=== PATIENT | male | born 1945 | race Caucasian/White ===

== ENCOUNTER 2025-01-20 19:48 | Inpatient (IN) | payer MEDICARE ==
[2025-01-20] MEDS: SODIUM CHLORIDE 0.9% 1,000 ML IV ONE (20:22)
[2025-01-20] MEDS: MIDAZOLAM 2 MG/2 ML VIAL IVP ONE ×2 (20:46→21:32)
[2025-01-20] MEDS: fentaNYL (PF) 50 MCG/1 ML VIAL IVP ONE (20:46)
[2025-01-20] MEDS: LIDOCAINE 1% INJ 10MG/ML (20 ML MDV) SQ ONE (20:46)
[2025-01-20] MEDS: VERAPAMIL SYRINGE (5 MG/10 ML) INTRAARTER ONE (20:50)
[2025-01-20] MEDS: TICAGRELOR 90 MG TAB PO ONE (21:02)
[2025-01-20] MEDS: HEPARIN SODIUM 1,000 UN/ML (10ML VL) IVP ONE ×2 (21:04→21:17)
[2025-01-20] MEDS: HEPARIN SODIUM,PORCINE 10,000 UNIT in SODIUM CHLORIDE 0.9% 1,000 ML IRRIGATION ONE (21:11)
[2025-01-20] MEDS: HEPARIN SODIUM,PORCINE (1 ML) 2,500 UNIT in SODIUM CHLORIDE 0.9% 250 ML IRRIGATION ONE (21:11)
[2025-01-20] MEDS: IOPAMIDOL-370 100ML BTL INJ ONE (22:00)
[2025-01-20] MEDS ORDERED: ATROPINE SULFATE 0.1 MG/ML 10ML SYRINGE IV PRN (22:03)
[2025-01-20] MEDS ORDERED: NITROGLYCERIN SL TABS 0.4 MG TAB SUBLINGUAL PRN (22:03)
[2025-01-20] MEDS ORDERED: ZOLPIDEM 5 MG TAB PO PRN (22:03)
[2025-01-20] MEDS ORDERED: MAG HYDROX/AL HYDROX/SIMETH 30 ML CUP PO PRN (22:03)
[2025-01-20] MEDS ORDERED: RX INFO: IV CONTRAST WAS GIVEN 1 EACH MISC MISCELLANE PRN (22:03)
[2025-01-20 22:07] LABS: Glucose,Whole Blood 102 mg/dL (70-110)
--- NOTE | 2025-01-20 22:12 | P.CARDCATH ---
Date of Procedure: 01/20/25 Description of Procedure: PERCUTANEOUS TRANSLUMINAL CORONARY ANGIOPLASTY CLINICAL INFORMATION: The patient is a 79-year-old male who presented to [facility] symptoms of chest discomfort, elevated troponin but no significant EKG changes. He underwent coronary angiography by Dr. Senior and was found to have calcified coronary arteries with severe disease in the mid RCA there appears to be an unstable plaque as well as disease in the proximal and mid LAD. Recommendations were made regarding angioplasty and stenting. The procedure as well as the risks and the complications were discussed with the patient who was in full understanding and agreement. PROCEDURE: A 6 Tongan AL 0.75 guiding catheter was introduced into the system. After cannulating the right coronary ostium, a 0.014 BMW J-wire was advanced across the lesion and positioned distally. A Blood cell Storage eye IVUS catheter was introduced and revealed a moderately calcified lesion with a distal lumen measuring 3.5 mm in diameter. Following that a 2.5 x 12 mm NC trek balloon was advanced and inflated at 10 atmosphere. Attempt to advance a 3.25 by 38 mm Xience joseph point stent were unsuccessful. A 3.0 x 12 mm NC trek balloon was advanced and inflations at 8 gabbi were done. Subsequently a 6 Tongan guide liner was positioned and with the help of the guide liner the stent was advanced. It was dilated at 16 gabbi. Repeat IVUS imaging was performed and subsequently 3.5 x 15 mm NC trek balloon was advanced and multiple inflation at 10 gabbi was done. After the last inflation, after appropriate wait, the balloon and the guidewire were withdrawn back into the guiding catheter. Images were obtained and repeated. Those images reveal stable successful stenting. At that point, the guiding catheter, the balloon, and guidewire were removed. The sheath was removed. Hemostasis was obtained with deployment of a TR band. There were no i mmediate complications. The patient was returned to the room in stable condition. Of note, the patient received 4000 units of heparin as well as Brilinta. His ACT was followed. There was no immediate complications. He had chest discomfort that improved at the end of the procedure. There was no significant EKG changes. RESULTS: Successful stenting of the mid RCA with reduction of stenosis from 90% to less than 5% with IVUS imaging and NIKA-3 flow. RECOMMENDATIONS: The patient will continue on aspirin and Brilinta for 1 year without any interruption in addition to aggressive coronary risks modifications. He will be evaluated regarding the timing to proceed with angioplasty and stenting of the LAD. The findings and recommendations were discussed with the patient and the family, they are in full understanding and agreement. Duration of sedation: 43 minutes
[2025-01-20] MEDS: SODIUM CHLORIDE 0.9% 1,000 ML in EMPTY BAG 1 BAG IV SCH (22:15)
[2025-01-21] MEDS: traZODone HCL 50 MG TAB PO SCH (00:27)
[2025-01-21 06:08] LABS: African American GFR (CKD) 82 (>60 ml/min/1.73 sqM); Anion Gap 7 mmol/L; Blood Urea Nitrogen 18 mg/dL (9-20); Calcium 8.1 mg/dL (8.4-10.2); Carbon Dioxide 20 mmol/L (22-30); Chloride 113 mmol/L (98-107); Glucose 81 mg/dL (74-99); Non-African American GFR(CKD) 71 (>60 ml/min/1.73 sqM); Potassium 3.4 mmol/L (3.5-5.1); Sodium 140 mmol/L (137-145)
[2025-01-21] MEDS ORDERED: ALPRAZolam 0.25 MG TAB PO PRN (07:36)
[2025-01-21] MEDS ORDERED: NITROGLYCERIN SL TABS 0.4 MG TAB SUBLINGUAL PRN (07:36)
[2025-01-21] MEDS ORDERED: ALPRAZolam 0.5 MG TAB PO PRN (07:36)
[2025-01-21] MEDS: TICAGRELOR 90 MG TAB PO SCH (08:11)
[2025-01-21] MEDS: METOPROLOL TARTRATE 25 MG TAB PO SCH (08:11)
[2025-01-21] MEDS: lisinopriL 10 MG TAB PO SCH (08:11)
[2025-01-21] MEDS: ASPIRIN 81 MG PO SCH (08:11)
[2025-01-21 08:49] LABS: Chol/HDL Ratio 3.93 Ratio; LDL Cholesterol,Calculated 91.6 mg/dL (0.0-131.0); VLDL Calculation 17.96 mg/dL (5.00-40.00)
[2025-01-21] MEDS ORDERED: Potassium Replacement Protocol 1 EACH MISC MISCELLANE PRN (09:19)
[2025-01-21] MEDS: POTASSIUM CHLORIDE ER 20 MEQ TAB.ER PO SCH (10:23)
--- NOTE | 2025-01-21 10:25 | CONS ---
CONSULTATION CHIEF COMPLAINT: Chest pain. HISTORY OF PRESENT ILLNESS: The patient 79-year-old gentleman with history of nonsustained VT, hypertension and dyslipidemia, who presented to [facility] with chest pain. The chest discomfort was like pressure, pericardial, radiated to both his arms, started around 9 o'clock this morning. I was called sometime up to 5 o'clock, informing me that his high sensitivity troponin came back elevated at 1255, however, the patient was pain- free and stable hemodynamically. I was told that the EKG did not reveal any ST-segment elevation. I received another phone call around 7 o'clock when the second set of troponin came back and it was around 4500. Due to this, I advised them to transfer the patient over to [facility] for an emergent catheterization. I am seeing the patient for the first time in the laboratory analyst. I do not have an EKG from the hospital. He states that he is pain-free, seems comfortable at rest and not in distress. I advised him to undergo cardiac catheterization for further evaluation. PAST MEDICAL HISTORY: Significant for hypertension and dyslipidemia. CURRENT MEDICATIONS: Include; 1. Lisinopril 30 daily. 2. Lopressor. 3. Rosuvastatin. 4. Flomax. ALLERGIES: As charted. FAMILY HISTORY: Negative for premature coronary artery disease. SOCIAL HISTORY: Negative for smoking, EtOH abuse, or drug abuse. REVIEW OF SYSTEMS: review of systems has been performed, pertinent are as documented. PHYSICAL EXAMINATION: GENERAL: Comfortable at rest. VITAL SIGNS: Stable. NECK: There is no jugular venous distention. Carotid upstroke is normal. There is no bruit. CHEST: Reveals good air entry bilaterally. HEART: Reveals first and second heart sounds. Systolic murmur at the apex. ABDOMEN: Soft. EXTREMITIES: Examination of the extremities did not reveal any edema. Peripheral pulses are felt. LABORATORY DATA: Show that the troponin is elevated. Hemoglobin is 13.1, platelet count is 198. AST and ALT are within normal limits. Creatinine is 1.38 with a BUN of 27. ASSESSMENT: 1. Acute coronary syndrome. 2. Renal insufficiency. 3. History of hypertension. 4. History of dyslipidemia. PLAN: The patient will undergo cardiac catheterization and will decide on further course of action based on the angiographic data. MMODL / IJN: [id number] /
[2025-01-21 12:54] VITALS: BMI 24.8
--- NOTE | 2025-01-21 14:32 | P.PN ---
Subjective Progress Note Date: 01/21/25 The patient is a 79-year-old male with no cardiac history, who presented to [facility] with new onset of chest discomfort. Coronary angiogram revealed multivessel coronary artery disease and he underwent stenting of the RCA by Dr. Mendoza. Patient also had intermediate to severe disease in the LAD, however with the patient's history of renal disease this was to be completed in a staged approach. Patient states he did relatively well overnight. He states he did not get much sleep. No chest pain or pressure. No difficulty breathing. GENERAL: Well-appearing, well-nourished and in no acute distress. NECK: Supple without JVD or thyromegaly. LUNGS: Breath sounds clear to auscultation bilaterally. Respiration equal and unlabored. No wheezes, rales or rhonchi. HEART: Regular rate and rhythm without murmurs, rubs or gallops. S1 and S2 heard. EXTREMITIES: Normal range of motion, no edema. No clubbing or cyanosis. Peripheral pulses intact and strong. Right radial site has no hematoma. TELEMETRY: Sinus rhythm overnight LABS: Sodium 140, potassium 3.4, BUN 18, creatinine 1.0, triglycerides 89, LDL 91 and HDL 37 IMPRESSION: Acute coronary syndrome Multivessel coronary artery disease Status post stenting of the RCA Renal insufficiency History of hypertension History of hyperlipidemia PLAN: Continue current antiplatelet therapy, beta-randa, and statin Plan for repeat coronary angiogram tomorrow to address the LAD N.p.o. after midnight Further recommendations based on clinical course I am dictating on behalf of Dr Jhon Sharpe's history/physical and assessment/plan. Objective - Vital Signs Vital signs: Vital Signs Temp 97.8 F 01/21/25 12:00 Pulse 70 01/21/25 12:00 Resp 18 01/21/25 12:00 BP 140/87 01/21/25 12:00 Pulse Ox 97 01/21/25 12:00 FiO2 Intake & Output 01/20/25 01/21/25 01/21/25 18:59 06:59 18:59 Intake Total 826 392 Output Total 0 Balance 826 392 Weight 74.2 kg 74.2 kg Intake: IV 826 152 Sodium Chloride 0.9% 1, 576 152 000 ml In Empty Bag 1 bag @ 1 ML/KG/HR 72.575 mls/ hr IV .[id number] [facility] Rx#: [id number] Oral 240 Output: Urine 0 Other: Voiding Method Toilet Toilet # Voids 1 1 # Bowel Movements 1 1 - Labs CBC & Chem 7: 01/21/25 05:02 Labs: Abnormal Lab Results - Last 24 Hours (Table) 01/21/25 01/21/25 Range/Units 05:02 05:02 Potassium 3.4 L (3.5-5.1) mmol/L Chloride 113 H (98-107) mmol/L Carbon Dioxide 20 L (22-30) mmol/L Calcium 8.1 L (8.4-10.2) mg/dL HDL Cholesterol 37.40 L (40.00-60.00) mg/dL
[2025-01-21] MEDS: ATORVASTATIN 80 MG TAB PO SCH (21:43)
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
[2025-01-22] MEDS ORDERED: ATORVASTATIN 80 MG TAB PO ONE (06:00)
[2025-01-22] MEDS ORDERED: ASPIRIN 325 MG TAB PO ONE (06:00)
[2025-01-22 06:01] LABS: Basophils # (A) 0.04 10*3/uL (0.00-0.10); Basophils % (A) 0.7 %; Eosinophils # (A) 0.18 10*3/uL (0.04-0.35); HCT 35.1 % (39.6-50.0); HGB 11.6 g/dL (13.0-17.0); Lymphocytes # (A) 0.72 10*3/uL (0.90-5.00); Lymphocytes % (A) 12.2 %; MCH 31.3 pg (27.0-32.0); MCV 94.6 fL (80.0-97.0); Mean Platelet Volume 11.5 fL (9.5-12.2); Monocytes # (A) 0.53 10*3/uL (0.20-1.00); Neutrophils # (A) 4.43 10*3/uL (1.80-7.70); Neutrophils % (A) 74.9 %; Platelet Count 183 10*3/uL (140-440); RBC 3.71 10*6/uL (4.40-5.60); RDW 13.8 % (11.5-14.5); WBC 5.91 10*3/uL (4.50-10.00)
[2025-01-22 06:19] LABS: African American GFR (CKD) 87 (>60 ml/min/1.73 sqM); Anion Gap 4 mmol/L; Blood Urea Nitrogen 13 mg/dL (9-20); Calcium 8.9 mg/dL (8.4-10.2); Carbon Dioxide 22 mmol/L (22-30); Chloride 112 mmol/L (98-107); Glucose 88 mg/dL (74-99); Non-African American GFR(CKD) 75 (>60 ml/min/1.73 sqM); Sodium 138 mmol/L (137-145)
[2025-01-22 06:25] LABS: Magnesium 1.7 mg/dL (1.6-2.3); Potassium 3.8 mmol/L (3.5-5.1)
[2025-01-22] MEDS: ASPIRIN 81 MG PO SCH (08:06)
--- NOTE | 2025-01-22 10:33 | CA ---
Transthoracic Echo Report Name: Marco A Pope Age: 79 Gender: M : 1945 Exam Date: 01/21/2025 12:29 Exam Location: [place] [facility] Ht (in): 68 Wt (lb): 160 Ordering Physician: Afsaneh Mendoza MD ([id number]) Attending/Referring Phys: Buckle Wire Inserter Cari Ramirez RDCS Procedure CPT: Indications: TN Cardiac Hx: Technical Quality: Fair Contrast 1: Total Dose (mL): Contrast 2: Total Dose (mL): MEASUREMENTS (Male / Female) Normal Values 2D ECHO LV Diastolic Diameter PLAX 4.0 cm 4.2 - 5.9 / 3.9 - 5.3 cm LV Systolic Diameter PLAX 2.7 cm IVS Diastolic Thickness 1.0 cm 0.6 - 1.0 / 0.6 - 0.9 cm LVPW Diastolic Thickness 1.1 cm 0.6 - 1.0 / 0.6 - 0.9 cm LV Relative Wall Thickness 0.5 RV Internal Dim ED PLAX 2.3 cm LVOT Diameter 2.1 cm LA Systolic Diameter LX 3.5 cm 3.0 - 4.0 / 2.7 - 3.8 cm LV Diastolic Volume MOD BP 58.0 cm??? 67 - 155 / 56 - 104 cm??? LV Systolic Volume MOD BP 25.7 cm??? / 19 - 49 cm??? LV Ejection Fraction MOD BP 55.7 % >= 55 % LV Cardiac Index MOD BP 1242.0 cm???/min???m??? LV Diastolic Volume MOD 4C 53.0 cm??? LV Systolic Volume MOD 4C 28.7 cm??? LV Ejection Fraction MOD 4C 45.8 % LV Cardiac Index MOD 4C 931.4 cm???/min???m??? LV Diastolic Length 4C 7.7 cm LV Systolic Length 4C 6.8 cm LV Diastolic Volume MOD 2C 61.2 cm??? LV Systolic Volume MOD 2C 23.0 cm??? LV Ejection Fraction MOD 2C 62.5 % LV Cardiac Index MOD 2C 1470.0 cm???/min???m??? LV Diastolic Length 2C 7.4 cm LV Systolic Length 2C 6.6 cm LA Volume 49.8 cm??? / 22 - 52 cm??? LA Volume Index 26.6 cm???/m??? 16 - 28 cm???/m??? M-MODE Aortic Root Diameter MM 2.9 cm LA Systolic Diameter MM 2.8 cm LA Ao Ratio MM 1.0 AV Cusp Separation MM 1.5 cm DOPPLER MV Area PHT 3.7 cm??? Mitral E Point Velocity 71.1 cm/s Mitral A Point Velocity 100.0 cm/s Mitral E to A Ratio 0.7 MV Deceleration Time 207.8 ms TR Peak Velocity 260.4 cm/s TR Peak Gradient 27.1 mmHg Right Atrial Pressure 20.0 mmHg Pulmonary Artery Systolic Pressu 47.1 mmHg Right Ventricular Systolic Press 47.1 mmHg FINDINGS Left Ventricle Left ventricular ejection fraction is estimated at 55-60 %. Normal left ventricular systolic function with no obvious regional wall motion abnormalities. Left ventricular cavity size normal. Left ventricular wall thickness normal. Right Ventricle Normal right ventricular size and function. Mild- moderate pulmonary hypertension. Right Atrium Mild right atrial dilatation. Left Atrium Mild left atrial dilatation. Mitral Valve Mitral valve thickened. Mitral annular calcification. Moderate mitral regurgitation. No mitral stenosis. Aortic Valve Trileaflet aortic valve. No aortic stenosis. No aortic regurgitation. Diffuse thickening (sclerosis) of the aortic valve cusps without reduced excursion. Tricuspid Valve Structurally normal tricuspid valve. Moderate tricuspid regurgitation. No tricuspid stenosis. Pulmonic Valve Structurally normal pulmonic valve. Trace pulmonic regurgitation. No pulmonic stenosis. Pericardium Minimal pericardial effusion (normal variant). No pericardial effusion. Aorta Normal size aortic root and proximal ascending aorta. CONCLUSIONS Take normal LV size and systolic function with mild concentric LVH. Mitral annular calcification with moderate mitral regurgitation, moderate tricuspid regurgitation with mild to moderate pulmonary hypertension. Small pericardial effusion Previewed by: Dr. Rajiv Foreman MD (Electronically Signed) Final Date: 22 January 2025 10:32
--- NOTE | 2025-01-22 11:19 | P.PN ---
Subjective HISTORY OF PRESENT ILLNESS: 01/21/2025 The patient is a 79-year-old male with no cardiac history, who presented to [facility] with new onset of chest discomfort. Coronary angiogram revealed multivessel coronary artery disease and he underwent stenting of the RCA by Dr. Mendoza. Patient also had intermediate to severe disease in the LAD, however with the patient's history of renal disease this was to be completed in a staged approach. Patient states he did relatively well overnight. He states he did not get much sleep. No chest pain or pressure. No difficulty breathing. 01/22/2025 Patient examined this morning at the bedside. Patient currently denies any chest pain or pressure. Denies any shortness of breath. Vital signs are stable. Telemetry reveals sinus mechanism. PHYSICAL EXAM: VITAL SIGNS: Reviewed. GENERAL: Well-developed in no acute distress. NECK: Supple. No JVD or thyromegaly LUNGS: Respirations even and unlabored. Lungs essentially clear to auscultation bilaterally. HEART: Regular rate and rhythm. S1 and S2 heard. EXTREMITIES: Normal range of motion. No clubbing or cyanosis. Peripheral pulses intact. No lower extremity edema ASSESSMENT: Acute coronary syndrome status post stenting of the RCA Multivessel coronary artery disease History of hypertension History of hyperlipidemia PLAN: Continue aspirin, Lipitor, lisinopril, metoprolol, and Brilinta Patient to undergo repeat cardiac catheterization tomorrow, 01/23/2025, with Dr. Mendoza to address LAD lesion Further recommendations pending patient course Nurse practitioner note has been reviewed by physician. Signing provider agrees with the documented findings, assessment, and plan of care documented by COAT BASTER as a scribe. Objective - Vital Signs Vital signs: Vital Signs Temp 98.1 F 01/22/25 08:00 Pulse 82 01/22/25 08:00 Resp 14 01/22/25 08:00 BP 145/82 01/22/25 08:00 Pulse Ox 97 01/22/25 08:00 FiO2 Intake & Output 01/21/25 01/22/25 01/22/25 18:59 06:59 18:59 Intake Total 752 70 240 Output Total 400 Balance 752 -330 240 Weight 74.2 kg 69.6 kg Intake: IV 272 70 Invasive Line 1 10 Sodium Chloride 0.9% 1, 272 60 000 ml In Empty Bag 1 bag @ 1 ML/KG/HR 72.575 mls/ hr IV .[id number] [facility] Rx#: [id number] Oral 480 240 Output: Urine 400 Other: Voiding Method Toilet Toilet Urinal # Voids 2 1 # Bowel Movements 2 1 - Labs CBC & Chem 7: 01/22/25 05:34 01/22/25 05:34 Labs: Abnormal Lab Results - Last 24 Hours (Table) 01/22/25 01/22/25 Range/Units 05:34 05:34 RBC 3.71 L (4.40-5.60) 10*6/uL Hgb 11.6 L (13.0-17.0) g/dL Hct 35.1 L (39.6-50.0) % Lymphocytes # 0.72 L (0.90-5.00) 10*3/uL Chloride 112 H (98-107) mmol/L
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
[2025-01-23] MEDS: ATORVASTATIN 80 MG TAB PO ONE (06:07)
[2025-01-23] MEDS: ASPIRIN 325 MG TAB PO ONE (06:07)
[2025-01-23 08:37] LABS: African American GFR (CKD) 64 (>60 ml/min/1.73 sqM); Anion Gap 7 mmol/L; Blood Urea Nitrogen 15 mg/dL (9-20); Calcium 9.3 mg/dL (8.4-10.2); Carbon Dioxide 23 mmol/L (22-30); Chloride 108 mmol/L (98-107); Glucose 80 mg/dL (74-99); Magnesium 1.8 mg/dL (1.6-2.3); Non-African American GFR(CKD) 55 (>60 ml/min/1.73 sqM); Potassium 3.4 mmol/L (3.5-5.1); Sodium 138 mmol/L (137-145)
[2025-01-23] MEDS: EMPTY BAG 1 BAG with SODIUM CHLORIDE 0.9% 1,000 ML IV ONE (09:00)
[2025-01-23] MEDS ORDERED: ASPIRIN 81 MG PO SCH (09:00)
[2025-01-23] MEDS ORDERED: Potassium Replacement Protocol 1 EACH MISC MISCELLANE PRN (09:35)
[2025-01-23] MEDS: HEPARIN SODIUM,PORCINE 10,000 UNIT in SODIUM CHLORIDE 0.9% 1,000 ML IRRIGATION PRN (10:04)
[2025-01-23] MEDS: HEPARIN SODIUM,PORCINE (1 ML) 2,500 UNIT in SODIUM CHLORIDE 0.9% 250 ML IRRIGATION PRN (10:05)
[2025-01-23] MEDS: IV FLUID CONTINUATION 1,000 ML IV ONE (10:53)
[2025-01-23] MEDS: fentaNYL (PF) 50 MCG/ML 2 ML AMP IVP ONE (11:27)
[2025-01-23] MEDS: LIDOCAINE 1% INJ 10MG/ML (20 ML MDV) SQ ONE (11:28)
[2025-01-23] MEDS: VERAPAMIL SYRINGE (5 MG/10 ML) INTRAARTER ONE (11:30)
[2025-01-23] MEDS: HEPARIN SODIUM 1,000 UN/ML (10ML VL) IVP ONE (11:31)
[2025-01-23] MEDS: IOPAMIDOL-370 100ML BTL INJ ONE (12:09)
--- NOTE | 2025-01-23 12:11 | P.PN ---
Subjective HISTORY OF PRESENT ILLNESS: 01/21/2025 The patient is a 79-year-old male with no cardiac history, who presented to [facility] [place] with new onset of chest discomfort. Coronary angiogram revealed multivessel coronary artery disease and he underwent stenting of the RCA by Dr. Mendoza. Patient also had intermediate to severe disease in the LAD, however with the patient's history of renal disease this was to be completed in a staged approach. Patient states he did relatively well overnight. He states he did not get much sleep. No chest pain or pressure. No difficulty breathing. 01/22/2025 Patient examined this morning at the bedside. Patient currently denies any chest pain or pressure. Denies any shortness of breath. Vital signs are stable. Telemetry reveals sinus mechanism. 01/23/2025 Patient examined this morning at bedside. Patient currently denies chest pain or pressure. Denies shortness of breath. Vital signs are stable. Telemetry reveals sinus mechanism. PHYSICAL EXAM: VITAL SIGNS: Reviewed. GENERAL: Well-developed in no acute distress. NECK: Supple. No JVD or thyromegaly LUNGS: Respirations even and unlabored. Lungs essentially clear to auscultation bilaterally. HEART: Regular rate and rhythm. S1 and S2 heard. EXTREMITIES: Normal range of motion. No clubbing or cyanosis. Peripheral pulses intact. No lower extremity edema ASSESSMENT: Acute coronary syndrome status post stenting of the RCA Multivessel coronary artery disease History of hypertension History of hyperlipidemia PLAN: Continue aspirin, Lipitor, lisinopril, metoprolol, and Brilinta Patient to undergo repeat cardiac catheterization today with Dr. Mendoza to address LAD lesion Further recommendations pending patient course Nurse practitioner note has been reviewed by physician. Signing provider agrees with the documented findings, assessment, and plan of care documented by VOLUNTEER SERVICES MANAGER as a scribe. Objective - Vital Signs Vital signs: Vital Signs Temp 98.1 F 01/23/25 08:14 Pulse 61 01/23/25 08:14 Resp 17 01/23/25 08:14 BP 161/77 01/23/25 08:14 Pulse Ox 98 01/23/25 08:14 FiO2 Intake & Output 01/22/25 01/23/25 01/23/25 18:59 06:59 18:59 Intake Total 720 10 85 Balance 720 10 85 Weight 68.9 kg Intake: IV 10 85 Invasive Line 1 10 10 Oral 720 Other: Voiding Method Toilet Toilet Toilet Urinal Urinal Urinal # Voids 2 1 # Bowel Movements 1 - Labs CBC & Chem 7: 01/22/25 05:34 01/23/25 07:42 Labs: Abnormal Lab Results - Last 24 Hours (Table) 01/23/25 Range/Units 07:42 Potassium 3.4 L (3.5-5.1) mmol/L Chloride 108 H (98-107) mmol/L
[2025-01-23] MEDS ORDERED: ZOLPIDEM 5 MG TAB PO PRN (12:20)
[2025-01-23] MEDS ORDERED: RX INFO: IV CONTRAST WAS GIVEN 1 EACH MISC MISCELLANE PRN (12:20)
[2025-01-23] MEDS ORDERED: ATROPINE SULFATE 0.1 MG/ML 10ML SYRINGE IV PRN (12:20)
[2025-01-23] MEDS ORDERED: MAG HYDROX/AL HYDROX/SIMETH 30 ML CUP PO PRN (12:20)
[2025-01-23] MEDS ORDERED: NITROGLYCERIN SL TABS 0.4 MG TAB SUBLINGUAL PRN (12:20)
--- NOTE | 2025-01-23 12:29 | P.CARDCATH ---
Date of Procedure: 01/23/25 Description of Procedure: PERCUTANEOUS TRANSLUMINAL CORONARY ANGIOPLASTY CLINICAL INFORMATION: The patient is a 79-year-old male with history of hypertension and hyperlipidemia who presented 3 days ago with non-STEMI, was found to have severe disease in the LAD and the RCA, he underwent stenting of the RCA and is scheduled to undergo stenting of the LAD and evaluation of the left main.. Recommendations were made regarding angioplasty and stenting. The procedure as well as the risks and the complications were discussed with the patient who was in full understanding and agreement. PROCEDURE: The patient was brought to the [facility] in the fasting semisedated state after receiving fentanyl and Benadryl, using modified Seldinger technique a 6 [place] sheath was introduced in the right radial artery. A 6 [place] 3.5 guiding catheter was introduced into the system. After cannulating the left main, a 0.014 BMW J wire was advanced across the lesion and positioned distally. Following that a [employer] [place] eye IVUS catheter was introduced and imaging of the left main was done and showed lumen between 8.2 and 9 mm. Imaging of the mid LAD was performed and revealed the distal lumen of 3.5 and proximally a 4 to 4.25 mm in diameter with moderate calcification. After removing the catheter a 3.0 x 38 mm Xience Skypoint stent was advanced and deployed at 16 gabbi. Repeat IVUS imaging was performed and subsequently a 4.0 x 12 mm Xience Skypoint stent was deployed proximal to the first 1 at 14 gabbi. Subsequently a 3.5 x 15 mm NC trek balloon was advanced and inflations were done in multiple segment of the stents at 12 gabbi and after that the 4.0 x 12 mm NC trek balloon was advanced and 2 inflation in the proximal stent was performed at 10 gabbi. After the last inflation, after appropriate wait, the balloon and the guidewire were withdrawn back into the guiding catheter. Images were obtained and repeated. Those images reveal stable successful stenting. At that point, the guiding catheter, the balloon, and guidewire were removed. The sheath was removed. Hemostasis was obtained with TR band. There were no immediate complications. The patient was returned to the room in stable condition. Of note, the patient received 6000 units of heparin as well as continued on Brilinta. His ACT was followed. There was no immediate complications. He had EKG changes with the inflations but no chest discomfort. RESULTS: Successful stenting of the long segment of the proximal and mid LAD w ith reduction of stenosis from 90% to less than 5% with IVUS imaging and NIKA-3 flow, the patient had tubular lesion in the distal segment that was felt better to be treated medically Noncritical left main disease by IVUS. RECOMMENDATIONS: The patient will continue on aspirin and Brilinta without any interruption for 1 year in addition to aggressive coronary risks modifications, maintaining LDL below 70 mg/dL. The findings and recommendations were discussed with the patient and the family, they are in full understanding and agreement. Duration of sedation: 40. Minutes
[2025-01-23] MEDS: POTASSIUM CHLORIDE ER 20 MEQ TAB.ER PO SCH (12:30)
[2025-01-23] MEDS: SODIUM CHLORIDE 0.9% 1,000 ML in EMPTY BAG 1 BAG IV SCH (12:33)
[2025-01-23] MEDS: ATORVASTATIN 80 MG TAB PO SCH (20:10)
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
[2025-01-24 08:14] VITALS: TEMP 98
[2025-01-24] MEDS: lisinopriL 20 MG TAB PO SCH (08:15)
[2025-01-24 08:30] LABS: Basophils # (A) 0.04 10*3/uL (0.00-0.10); Basophils % (A) 0.6 %; Eosinophils # (A) 0.23 10*3/uL (0.04-0.35); Eosinophils % (A) 3.7 %; HCT 37.1 % (39.6-50.0); HGB 12.2 g/dL (13.0-17.0); Lymphocytes # (A) 0.91 10*3/uL (0.90-5.00); Lymphocytes % (A) 14.5 %; MCH 30.8 pg (27.0-32.0); MCHC 32.9 g/dL (32.0-37.0); MCV 93.7 fL (80.0-97.0); Mean Platelet Volume 11.1 fL (9.5-12.2); Neutrophils # (A) 4.58 10*3/uL (1.80-7.70); Neutrophils % (A) 72.9 %; Platelet Count 207 10*3/uL (140-440); RBC 3.96 10*6/uL (4.40-5.60); RDW 13.7 % (11.5-14.5); WBC 6.28 10*3/uL (4.50-10.00)
[2025-01-24 08:55] LABS: African American GFR (CKD) 70 (>60 ml/min/1.73 sqM); Anion Gap 7 mmol/L; Blood Urea Nitrogen 14 mg/dL (9-20); Calcium 9.1 mg/dL (8.4-10.2); Carbon Dioxide 22 mmol/L (22-30); Chloride 110 mmol/L (98-107); Glucose 91 mg/dL (74-99); Non-African American GFR(CKD) 61 (>60 ml/min/1.73 sqM); Potassium 3.6 mmol/L (3.5-5.1); Sodium 139 mmol/L (137-145)
[2025-01-24 11:47] VITALS: BP 156/83; PULSE 61; RESP 15
--- NOTE | 2025-01-24 11:50 | P.PN ---
Subjective HISTORY OF PRESENT ILLNESS: 01/21/2025 The patient is a 79-year-old male with no cardiac history, who presented to [facility] with new onset of chest discomfort. Coronary angiogram revealed multivessel coronary artery disease and he underwent stenting of the RCA by Dr. Mendoza. Patient also had intermediate to severe disease in the LAD, however with the patient's history of renal disease this was to be completed in a staged approach. Patient states he did relatively well overnight. He states he did not get much sleep. No chest pain or pressure. No difficulty breathing. 01/22/2025 Patient examined this morning at the bedside. Patient currently denies any chest pain or pressure. Denies any shortness of breath. Vital signs are stable. Telemetry reveals sinus mechanism. 01/23/2025 Patient examined this morning at bedside. Patient currently denies chest pain or pressure. Denies shortness of breath. Vital signs are stable. Telemetry reveals sinus mechanism. 01/24/2025 Patient is status post cardiac catheterization yesterday with Dr. Mendoza revealing stenting of proximal and mid LAD. Patient examined this morning at bedside. Patient without complaints of chest pain or pressure. He denies shortness of breath. Blood pressure elevated today and his lisinopril has been increased to 20 mg twice daily PHYSICAL EXAM: VITAL SIGNS: Reviewed. GENERAL: Well-developed in no acute distress. NECK: Supple. No JVD or thyromegaly LUNGS: Respirations even and unlabored. Lungs essentially clear to auscultation bilaterally. HEART: Regular rate and rhythm. S1 and S2 heard. EXTREMITIES: Normal range of motion. No clubbing or cyanosis. Peripheral pulses intact. No lower extremity edema ASSESSMENT: Acute coronary syndrome status post stenting of the RCA and LAD Multivessel coronary artery disease History of hypertension History of hyperlipidemia PLAN: Continue dual antiplatelet therapy with aspirin and Brilinta for 12 months Continue high intensity statin. LDL goal less than 70 Continue metoprolol and lisinopril. Lisinopril increased today secondary to elevated blood pressures Patient is stable for discharge home today from a cardiac standpoint Nurse practitioner note has been reviewed by physician. Signing provider agrees with the documented findings, assessment, and plan of care documented by SUPERVISOR [employer] as a scribe. Objective - Vital Signs Vital signs: Vital Signs Temp 98.0 F 01/24/25 08:10 Pulse 61 01/24/25 11:46 Resp 15 01/24/25 11:46 BP 156/83 01/24/25 11:46 Pulse Ox 98 01/24/25 11:46 FiO2 Intake & Output 01/23/25 01/24/25 01/24/25 18:59 06:59 18:59 Intake Total 335 240 Balance 335 240 Weight 68.4 kg Intake: IV 95 Invasive Line 1 20 Oral 240 240 Other: Voiding Method Toilet Toilet Toilet Urinal Urinal # Voids 2 - Labs CBC & Chem 7: 01/24/25 07:53 01/24/25 07:53 Labs: Abnormal Lab Results - Last 24 Hours (Table) 01/24/25 01/24/25 Range/Units 07:53 07:53 RBC 3.96 L (4.40-5.60) 10*6/uL Hgb 12.2 L (13.0-17.0) g/dL Hct 37.1 L (39.6-50.0) % Chloride 110 H (98-107) mmol/L
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
--- NOTE | 2025-02-06 18:39 | CC ---
CARDIAC CATHETERIZATION REPORT INDICATION: [id number] elevation OR. PROCEDURE IN DETAIL: After obtaining informed consent, left heart catheterization and coronary angiogram were performed via the right radial artery using standard Isaiah catheters. The patient tolerated the procedure well without any obvious immediate complications. The patient received moderate conscious sedation. Total sedation time was 13 minutes. Right radial artery access was obtained using Seldinger technique, 6-Kazakh sheath was placed. Catheters and wires were floated into the ascending aorta under fluoroscopic guidance. The patient received verapamil and heparin per protocol. FINDINGS: 1. Hemodynamics: Left ventricular end-diastolic pressure is 9 mm. There is no significant gradient across the aortic valve. 2. Left ventriculogram: Left ventriculogram was not performed. 3. Angiographic data: a.Right coronary artery is a large dominant vessel that shows 90% stenosis in its midportion. b.Left main coronary artery is calcified, shows an atherosclerotic plaque. There is a 30% to 40% stenosis in the distal left main. c. Mid LAD shows an 80% stenosis. CONCLUSION: Severe two-vessel coronary artery disease as described above. PLAN: I will review angiographic data with Dr. Dalal and proceed with angioplasty of the right coronary artery and LAD. MMODL / IJN: [id number] /
== END 2025-01-24 13:23 | disposition home or self-care (01) | DRG 322 ==
LOC: 2CATHESU 21:34 → 2SICU 21:55 → 3SCARD 01-22 02:26
PROVIDERS: ADMIT Internal Medicine; ATTEND Internal Medicine
PROC: 4A023N7 Measurement of Cardiac Sampling and Pressure, Left Heart, Percutaneous Approach (ICD-10-PCS; 2025-01-20)
PROC: B2111ZZ Fluoroscopy of Multiple Coronary Arteries using Low Osmolar Contrast (ICD-10-PCS; 2025-01-20)
PROC: 027034Z Dilation of Coronary Artery, One Artery with Drug-eluting Intraluminal Device, Percutaneous Approach (ICD-10-PCS; principal; 2025-01-20 20:13)
PROC: B240ZZ3 Ultrasonography of Single Coronary Artery, Intravascular (ICD-10-PCS; 2025-01-20 20:13)
PROC: B240ZZ3 Ultrasonography of Single Coronary Artery, Intravascular (ICD-10-PCS; 2025-01-23)
PROC: 027034Z Dilation of Coronary Artery, One Artery with Drug-eluting Intraluminal Device, Percutaneous Approach (ICD-10-PCS; 2025-01-23 11:00)
DX: I21.4 Non-ST elevation (NSTEMI) myocardial infarction (principal); E78.5 Hyperlipidemia, unspecified; I10 Essential (primary) hypertension; J45.909 Unspecified asthma, uncomplicated; I25.10 Atherosclerotic heart disease of native coronary artery without angina pectoris; E87.6 Hypokalemia; Z79.02 Long term (current) use of antithrombotics/antiplatelets; Z79.899 Other long term (current) drug therapy
CPT/HCPCS: 80048; 80061; 83735; 85025; 92978; 93306; 93458